=== PATIENT | female | born 1930 | race Caucasian/White ===

== ENCOUNTER → 2019-07-05 | Outpatient (CLI) | payer MEDICARE, BC ==
[~2019-07-05] MED LIST: LATANOPROST2.5 ML BOTHEYES; LEVOTHYROXINE PO; LEVSOD100 PO; Norco 5-325 Ta1 EACH PO; QUET25 PO; QUET300 PO; SERT100 PO
== END | disposition home or self-care (01) ==
LOC: PLD 14:22 → LAB SHORT 14:22
DX: C44.219 Basal cell carcinoma of skin of left ear and external auricular canal (principal)
CPT/HCPCS: 88305